=== PATIENT | female | born 1990 | race African-American/Black ===

== ENCOUNTER 2021-04-30 02:44 | Inpatient (IN) ==
[2021-04-30] MEDS ORDERED: SODIUM CHLORIDE 0.9% 1,000 ML IV STA (03:04)
[2021-04-30] MEDS ORDERED: HYDROmorphone 2 MG/1 ML VIAL IV STA (03:04)
[2021-04-30] MEDS ORDERED: ONDANSETRON 4 MG/2 ML VIAL IV STA (03:04)
[2021-04-30 04:21] LABS: Basophils % 0.2 % (0.0-0.8); Hematocrit 27.9 VOL% (35.7-47.0); Hemoglobin 8.7 GM/DL (12.0-16.0); Immature Granulocytes % 0.3 %; Immature Granulocytes Absolute 0.04 #; Lymphocytes # 0.9 10*3/uL (1.4-4.0); Lymphocytes % 6.6 % (21.3-54.2); Mean Corpuscular HGB Conc 31.2 GM/DL (32-36); Mean Corpuscular Volume 78.6 FL (87-102); Mean Platelet Volume 11.1 FL (9.6-12.0); Monocytes % 1.9 % (1.7-12.7); Platelet Count 162 T/CUMM (130-400); Red Blood Count 3.55 MC/CUMM (3.8-5.5); Red Cell Distribution Width 15.9 % (9.3-17.3); White Blood Count 13.1 T/CUMM (4-12)
[2021-04-30] MEDS ORDERED: GLUCAGON 1 MG VIAL IM PRN (04:37)
[2021-04-30] MEDS ORDERED: DEXTROSE 50% 25 GM/50 ML VIAL IV PRN (04:37)
[2021-04-30] MEDS ORDERED: DOCUSATE SODIUM 100 MG CAPSULE PO PRN (04:41)
[2021-04-30] MEDS ORDERED: SIMETHICONE CHEW 125 MG TABLET PO PRN (04:41)
[2021-04-30] MEDS ORDERED: cefTRIAXone 1,000 MG in SODIUM CHLORIDE 0.9% 100 ML IV SCH (05:00)
[2021-04-30] MEDS: SODIUM CHLORIDE 0.9% 1,000 ML IV SCH ×2 (05:02→14:06)
[2021-04-30 05:07] LABS: Alanine Aminotransferase 278 U/L (13-56); Albumin 2.5 G/DL (3.4-5.0); Alkaline Phosphatase 67 U/L (45-117); Amylase 38 U/L (25-115); Aspartate Amino Transferase 165 U/L (0-37); Blood Urea Nitrogen 9 MG/DL (7-18); Calcium 7.6 MG/DL (8.5-10.1); Carbon Dioxide 21 MMOL/L (21-32); Estimated Glom Filtration Rate 102 ML/MIN; Glucose 73 MG/DL (74-106); Osmolality,Calculated 263.4 MOS/KG (273-304); Potassium 3.5 MMOL/L (3.5-5.1); Sodium 133 MMOL/L (136-145); Total Protein 9.3 G/DL (6.4-8.2)
[2021-04-30 05:09] LABS: Bacteria Wet Mount Few /HPF; Clue Cells Few /HPF (None Seen); Epithelial Cell Wet Mount Few /HPF (Few/HPF); RBC Wet Mount 0-1 /HPF; Trichomonas Wet Mount None Seen /HPF (None Seen); Yeast Wet Mount None Seen /HPF (None Seen)
[2021-04-30] MEDS ORDERED: MAGNESIUM SULF RIDER 2 GM/50 ML PREMIX IV STA (05:15)
[2021-04-30 05:20] LABS: Bilirubin,Urine Negative (Negative); Blood, Urine Negative (Negative); Glucose,Urine (UA) Negative (Negative); Ketones,Urine Negative (Negative); Nitrite,Urine Negative (Negative); Protein,Urine Negative; RBC,Urine 3 /HPF (0-4); Squamous Epithelial Cell,Urine Occasional /HPF (0-10); Urine Appearance CLEAR (Clear); Urine Color Amber (Yellow); Urine Specific Gravity > 1.060 (1.001-1.035)
[2021-04-30 05:20] LABS: Band Neutrophils 5 % (0-10); Eosinophils 4 % (0-10); Lymphocytes 8 % (20-55); Platelet Estimate Normal; Segmented Neutrophils 83 % (50-85); Total Cells Counted 100
[2021-04-30 05:21] LABS: Hypochromasia Slight; Microcytosis 1+
[2021-04-30] MEDS ORDERED: POTASSIUM CHLORIDE RIDER 10 MEQ/100 ML PREMIX IV PRN (06:13)
[2021-04-30] MEDS ORDERED: MAGNESIUM SULF RIDER 4 GM/100 ML PREMIX IV PRN (06:13)
[2021-04-30] MEDS ORDERED: MAGNESIUM SULF RIDER 2 GM/50 ML PREMIX IV PRN (06:13)
[2021-04-30] MEDS: metroNIDAZOLE INJ 500 MG/100 ML PREMIX IV SCH ×2 (06:30→14:24)
[2021-04-30 06:42] LABS: Folate 10.25 NG/ML (5.38-24.0); Vitamin B12 568 PG/ML (211-911)
[2021-04-30 06:55] LABS: Basophils % 0.1 % (0.0-0.8); Hemoglobin 7.5 GM/DL (12.0-16.0); Immature Granulocytes % 0.6 %; Immature Granulocytes Absolute 0.07 #; Lymphocytes % 7.7 % (21.3-54.2); Mean Corpuscular HGB Conc 31.3 GM/DL (32-36); Mean Corpuscular Volume 78.7 FL (87-102); Mean Platelet Volume 12.2 FL (9.6-12.0); Monocytes % 2.4 % (1.7-12.7); Neutrophils % 89.2 % (38.7-73.9); Platelet Count 179 T/CUMM (130-400); Red Blood Count 3.05 MC/CUMM (3.8-5.5); White Blood Count 12.5 T/CUMM (4-12)
[2021-04-30 07:19] LABS: Band Neutrophils 5 % (0-10); Hypochromasia 1+; Lymphocytes 5 % (20-55); Microcytosis 1+; Platelet Estimate Adequate; Segmented Neutrophils 84 % (50-85); Total Cells Counted 100
[2021-04-30 08:10] LABS: Sedimentation Rate-Westergren 116 MM/HR (0-20)
[2021-04-30] MEDS ORDERED: INFLUENZA VIRUS VACCINE 0.5 ML SYRINGE IM ONE (08:29)
[2021-04-30] MEDS: PANTOPRAZOLE 40 MG TABLET PO SCH (09:05)
[2021-04-30 09:37] LABS: Hepatitis B Core IgM Quant 0.29 Index; Hepatitis B Surface Ag Quant < 0.10 Index; Hepatitis B Surface Ag Result Non-Reactive (NonReactive); Hepatitis C Virus Ab Quant 0.06 Index; Hepatitis C Virus Ab Result Non-Reactive (NonReactive)
[2021-04-30 10:17] LABS: Hemoglobin A1 (Alkaline) 94.7 % (96.5-98.5); Hemoglobin A2 (Alkaline) 5.3 % (1.5-3.5)
[2021-04-30] MEDS: CIPROFLOXACIN INJ 400 MG/200 ML PREMIX IV SCH ×2 (10:20→21:01)
[2021-04-30] MEDS ORDERED: MAGNESIUM SULF RIDER 4 GM/100 ML PREMIX IV ONE (11:42)
[2021-04-30] MEDS ORDERED: MAGNESIUM SULF RIDER 2 GM/50 ML PREMIX IV ONE (12:14)
[2021-04-30 12:51] LABS: % Iron Saturation 4.1 % (18-50)
[2021-04-30] MEDS: HYDROmorphone 2 MG/1 ML VIAL IV PRN (16:07)
[2021-04-30] MEDS: FERRIC GLUCONATE COMPLEX 125 MG in SODIUM CHLORIDE 0.9% 100 ML IV SCH (16:08)
[2021-04-30] MEDS ORDERED: SODIUM CHLORIDE 0.9% 1,000 ML IV PRN (18:35)
[2021-04-30] MEDS: SERTRALINE 50 MG TABLET PO SCH (22:15)
[2021-04-30] MEDS: DOXYCYCLINE HYCLATE INJ 100 MG in SODIUM CHLORIDE 0.9% 100 ML IV SCH (22:30)
[2021-05-01] MEDS: ONDANSETRON 4 MG/2 ML VIAL IV PRN ×3 (00:10→22:42)
[2021-05-01] MEDS: SODIUM CHLORIDE 0.9% 1,000 ML IV SCH ×3 (00:44→13:33)
[2021-05-01] MEDS: HYDROmorphone 2 MG/1 ML VIAL IV PRN ×4 (00:45→20:43)
[2021-05-01] MEDS: metroNIDAZOLE INJ 500 MG/100 ML PREMIX IV SCH ×4 (00:58→22:43)
[2021-05-01 06:24] LABS: Basophils % 0.2 % (0.0-0.8); Eosinophils % 0.2 % (0.00-10.9); Hematocrit 33.2 VOL% (35.7-47.0); Immature Granulocytes % 0.7 %; Immature Granulocytes Absolute 0.06 #; Mean Corpuscular HGB Conc 31.6 GM/DL (32-36); Mean Corpuscular Volume 80.4 FL (87-102); Mean Platelet Volume 12.3 FL (9.6-12.0); Monocytes % 4.1 % (1.7-12.7); Neutrophils % 82.8 % (38.7-73.9); Platelet Count 156 T/CUMM (130-400); Red Cell Distribution Width 15.9 % (9.3-17.3); White Blood Count 8.6 T/CUMM (4-12)
[2021-05-01 06:31] LABS: Hemoglobin 10.5 GM/DL (12.0-16.0); Red Blood Count 4.13 MC/CUMM (3.8-5.5)
[2021-05-01 06:45] LABS: Albumin 2.1 G/DL (3.4-5.0); Bilirubin,Direct 0.52 MG/DL (0.0-0.20); Bilirubin,Indirect 1.1 MG/DL (0.0-1.0); Bilirubin,Total 1.6 MG/DL (0.20-1.00); Bilirubin,Total 1.7 MG/DL (0.20-1.00); Calcium 7.9 MG/DL (8.5-10.1); Potassium 3.8 MMOL/L (3.5-5.1); Total Protein 7.8 G/DL (6.4-8.2); Total Protein 8.3 G/DL (6.4-8.2)
[2021-05-01 06:48] LABS: Band Neutrophils 2 % (0-10); Hypochromasia 1+; Lymphocytes 8 % (20-55); Microcytosis 1+; Platelet Estimate Adequate; Segmented Neutrophils 88 % (50-85); Total Cells Counted 100
[2021-05-01 09:27] LABS: Hematocrit 32.8 VOL% (35.7-47.0); Hemoglobin 10.6 GM/DL (12.0-16.0)
[2021-05-01] MEDS: DOXYCYCLINE HYCLATE INJ 100 MG in SODIUM CHLORIDE 0.9% 100 ML IV SCH ×2 (09:41→20:56)
[2021-05-01] MEDS ORDERED: MAGNESIUM SULF RIDER 2 GM/50 ML PREMIX IV ONE (09:42)
[2021-05-01] MEDS: PANTOPRAZOLE 40 MG TABLET PO SCH (09:42)
[2021-05-01] MEDS: CIPROFLOXACIN INJ 400 MG/200 ML PREMIX IV SCH (09:42)
[2021-05-01] MEDS: POLYETHYLENE GLYCOL POWDER 17 GM PACK PO SCH ×2 (09:42→21:12)
[2021-05-01] MEDS: FERRIC GLUCONATE COMPLEX 125 MG in SODIUM CHLORIDE 0.9% 100 ML IV SCH (11:00)
[2021-05-01] MEDS: SERTRALINE 50 MG TABLET PO SCH (20:46)
[2021-05-02] MEDS: CIPROFLOXACIN INJ 400 MG/200 ML PREMIX IV SCH ×3 (01:12→22:09)
[2021-05-02] MEDS: HYDROmorphone 2 MG/1 ML VIAL IV PRN (04:33)
[2021-05-02 04:35] LABS: Basophils % 0.5 % (0.0-0.8); Hematocrit 32.6 VOL% (35.7-47.0); Hemoglobin 10.5 GM/DL (12.0-16.0); Immature Granulocytes % 0.6 %; Immature Granulocytes Absolute 0.05 #; Lymphocytes # 0.6 10*3/uL (1.4-4.0); Lymphocytes % 7.3 % (21.3-54.2); Mean Corpuscular HGB Conc 32.2 GM/DL (32-36); Mean Corpuscular Volume 78.7 FL (87-102); Mean Platelet Volume 10.4 FL (9.6-12.0); Monocytes % 5.6 % (1.7-12.7); Platelet Count 175 T/CUMM (130-400); Red Blood Count 4.14 MC/CUMM (3.8-5.5); Red Cell Distribution Width 15.4 % (9.3-17.3)
[2021-05-02 04:57] LABS: Calcium 7.5 MG/DL (8.5-10.1); Osmolality,Calculated 265.2 MOS/KG (273-304); Potassium 3.6 MMOL/L (3.5-5.1)
[2021-05-02 05:00] LABS: Albumin 1.9 G/DL (3.4-5.0); Bilirubin,Direct 0.46 MG/DL (0.0-0.20); Bilirubin,Indirect 0.7 MG/DL (0.0-1.0); Bilirubin,Total 1.2 MG/DL (0.20-1.00); Total Protein 8.1 G/DL (6.4-8.2)
[2021-05-02 05:14] LABS: Band Neutrophils 3 % (0-10); Lymphocytes 10 % (20-55); Segmented Neutrophils 84 % (50-85); Total Cells Counted 100
[2021-05-02 05:15] LABS: Microcytosis 1+; Platelet Estimate Normal
[2021-05-02] MEDS: metroNIDAZOLE INJ 500 MG/100 ML PREMIX IV SCH ×2 (05:39→14:22)
[2021-05-02] MEDS: SODIUM CHLORIDE 0.9% 1,000 ML IV SCH ×4 (05:41→13:09)
[2021-05-02] MEDS: FERRIC GLUCONATE COMPLEX 125 MG in SODIUM CHLORIDE 0.9% 100 ML IV SCH (09:48)
[2021-05-02] MEDS: PANTOPRAZOLE 40 MG TABLET PO SCH (09:48)
[2021-05-02] MEDS: POLYETHYLENE GLYCOL POWDER 17 GM PACK PO SCH ×2 (09:48→22:09)
[2021-05-02] MEDS: DOXYCYCLINE HYCLATE INJ 100 MG in SODIUM CHLORIDE 0.9% 100 ML IV SCH ×2 (09:49→20:01)
[2021-05-02] MEDS ORDERED: MAGNESIUM SULF RIDER 2 GM/50 ML PREMIX IV ONE (11:26)
[2021-05-02] MEDS ORDERED: MORPHINE 2 MG/1 ML SYRINGE IV PRN (12:34)
[2021-05-02] MEDS: ACETAMINOPHEN 325 MG TABLET PO PRN ×2 (15:50→22:10)
[2021-05-02] MEDS ORDERED: hydrALAZINE 20 MG/1 ML VIAL IV PRN (15:52)
[2021-05-02] MEDS: amLODIPine 5 MG TABLET PO SCH (16:35)
[2021-05-02] MEDS: FUROSEMIDE 40 MG/4 ML VIAL IV SCH (22:10)
[2021-05-02] MEDS: SERTRALINE 50 MG TABLET PO SCH (22:10)
[2021-05-03] MEDS: metroNIDAZOLE INJ 500 MG/100 ML PREMIX IV SCH ×4 (01:34→23:23)
[2021-05-03 06:40] LABS: Basophils % 0.2 % (0.0-0.8); Eosinophils % 0.1 % (0.00-10.9); Hemoglobin 10.4 GM/DL (12.0-16.0); Immature Granulocytes % 0.5 %; Immature Granulocytes Absolute 0.05 #; Lymphocytes # 0.9 10*3/uL (1.4-4.0); Mean Corpuscular HGB Conc 32.5 GM/DL (32-36); Mean Corpuscular Volume 77.7 FL (87-102); Mean Platelet Volume 10.6 FL (9.6-12.0); Monocytes % 10.3 % (1.7-12.7); Neutrophils % 78.9 % (38.7-73.9); Platelet Count 196 T/CUMM (130-400); Red Blood Count 4.12 MC/CUMM (3.8-5.5); Red Cell Distribution Width 15.5 % (9.3-17.3); White Blood Count 9.2 T/CUMM (4-12)
[2021-05-03 07:08] LABS: Calcium 7.7 MG/DL (8.5-10.1); Osmolality,Calculated 266.1 MOS/KG (273-304); Potassium 3.1 MMOL/L (3.5-5.1)
[2021-05-03] MEDS ORDERED: MAGNESIUM SULF RIDER 4 GM/100 ML PREMIX IV ONE (07:42)
[2021-05-03] MEDS: POLYETHYLENE GLYCOL POWDER 17 GM PACK PO SCH ×2 (08:33→22:26)
[2021-05-03] MEDS: POTASSIUM CHLORIDE 20 MEQ PACK PO SCH ×2 (08:33→12:56)
[2021-05-03] MEDS: PANTOPRAZOLE 40 MG TABLET PO SCH (08:34)
[2021-05-03] MEDS: ACETAMINOPHEN 325 MG TABLET PO PRN ×3 (08:34→22:13)
[2021-05-03] MEDS: amLODIPine 5 MG TABLET PO SCH (08:35)
[2021-05-03] MEDS: FUROSEMIDE 40 MG/4 ML VIAL IV SCH ×2 (08:53→17:50)
[2021-05-03] MEDS: FERRIC GLUCONATE COMPLEX 125 MG in SODIUM CHLORIDE 0.9% 100 ML IV SCH (08:54)
[2021-05-03] MEDS: ONDANSETRON 4 MG/2 ML VIAL IV PRN (09:58)
[2021-05-03] MEDS: DOXYCYCLINE HYCLATE INJ 100 MG in SODIUM CHLORIDE 0.9% 100 ML IV SCH ×2 (12:23→23:18)
[2021-05-03] MEDS: CIPROFLOXACIN INJ 400 MG/200 ML PREMIX IV SCH ×2 (14:20→22:17)
[2021-05-03] MEDS: POTASSIUM CHLORIDE RIDER 10 MEQ/100 ML PREMIX IV SCH ×4 (17:50→22:26)
[2021-05-03] MEDS: METOCLOPRAMIDE 10 MG/2 ML VIAL IV SCH ×2 (17:50→23:16)
[2021-05-03] MEDS: SERTRALINE 50 MG TABLET PO SCH (22:04)
[2021-05-04 05:34] LABS: Basophils % 0.3 % (0.0-0.8); Eosinophils % 0.3 % (0.00-10.9); Hematocrit 31.7 VOL% (35.7-47.0); Hemoglobin 10.6 GM/DL (12.0-16.0); Immature Granulocytes % 1.5 %; Immature Granulocytes Absolute 0.15 #; Lymphocytes # 1.1 10*3/uL (1.4-4.0); Lymphocytes % 11.5 % (21.3-54.2); Mean Corpuscular HGB Conc 33.4 GM/DL (32-36); Mean Corpuscular Volume 77.3 FL (87-102); Mean Platelet Volume 9.9 FL (9.6-12.0); Monocytes % 12.3 % (1.7-12.7); Neutrophils % 74.1 % (38.7-73.9); Platelet Count 214 T/CUMM (130-400); Red Cell Distribution Width 15.7 % (9.3-17.3); White Blood Count 9.8 T/CUMM (4-12)
[2021-05-04] MEDS: metroNIDAZOLE INJ 500 MG/100 ML PREMIX IV SCH ×3 (05:53→23:56)
[2021-05-04] MEDS: METOCLOPRAMIDE 10 MG/2 ML VIAL IV SCH ×4 (05:55→23:56)
[2021-05-04 06:01] LABS: Bilirubin,Direct 0.3 MG/DL (0.0-0.20); Bilirubin,Indirect 0.8 MG/DL (0.0-1.0); Bilirubin,Total 1.1 MG/DL (0.20-1.00); Total Protein 8.5 G/DL (6.4-8.2)
[2021-05-04 06:02] LABS: Albumin 2.1 G/DL (3.4-5.0); Bilirubin,Total 1.2 MG/DL (0.20-1.00); Calcium 7.5 MG/DL (8.5-10.1); Osmolality,Calculated 266.1 MOS/KG (273-304); Potassium 2.9 MMOL/L (3.5-5.1); Total Protein 8.1 G/DL (6.4-8.2)
[2021-05-04] MEDS: CIPROFLOXACIN INJ 400 MG/200 ML PREMIX IV SCH ×2 (09:02→21:26)
[2021-05-04] MEDS: amLODIPine 5 MG TABLET PO SCH (09:03)
[2021-05-04] MEDS: POLYETHYLENE GLYCOL POWDER 17 GM PACK PO SCH ×2 (09:03→21:45)
[2021-05-04] MEDS: PANTOPRAZOLE 40 MG TABLET PO SCH (09:03)
[2021-05-04] MEDS: DOXYCYCLINE HYCLATE INJ 100 MG in SODIUM CHLORIDE 0.9% 100 ML IV SCH ×2 (09:09→22:27)
[2021-05-04] MEDS: ACETAMINOPHEN 325 MG TABLET PO PRN ×3 (09:25→22:27)
[2021-05-04] MEDS: FUROSEMIDE 40 MG/4 ML VIAL IV SCH ×2 (09:54→16:13)
[2021-05-04] MEDS: FERRIC GLUCONATE COMPLEX 125 MG in SODIUM CHLORIDE 0.9% 100 ML IV SCH (10:26)
[2021-05-04] MEDS: POTASSIUM CHLORIDE RIDER 10 MEQ/100 ML PREMIX IV SCH ×6 (12:06→18:10)
[2021-05-04] MEDS: POTASSIUM CHLORIDE 20 MEQ TABLET PO SCH (21:12)
[2021-05-04] MEDS: SERTRALINE 50 MG TABLET PO SCH (22:17)
[2021-05-05] MEDS: METOCLOPRAMIDE 10 MG/2 ML VIAL IV SCH ×3 (05:33→17:23)
[2021-05-05] MEDS: ACETAMINOPHEN 325 MG TABLET PO PRN ×3 (05:33→21:07)
[2021-05-05] MEDS: metroNIDAZOLE INJ 500 MG/100 ML PREMIX IV SCH ×2 (05:35→14:17)
[2021-05-05 06:03] LABS: Basophils % 0.1 % (0.0-0.8); Eosinophils # 0.1 10*3/uL (0.0-0.87); Eosinophils % 0.8 % (0.00-10.9); Hematocrit 32.4 VOL% (35.7-47.0); Hemoglobin 10.5 GM/DL (12.0-16.0); Immature Granulocytes % 1.1 %; Immature Granulocytes Absolute 0.09 #; Lymphocytes # 1.7 10*3/uL (1.4-4.0); Lymphocytes % 19.9 % (21.3-54.2); Mean Corpuscular HGB Conc 32.4 GM/DL (32-36); Mean Corpuscular Volume 77.3 FL (87-102); Mean Platelet Volume 9.2 FL (9.6-12.0); Monocytes % 10.2 % (1.7-12.7); Neutrophils % 67.9 % (38.7-73.9); Platelet Count 232 T/CUMM (130-400); Red Blood Count 4.19 MC/CUMM (3.8-5.5); Red Cell Distribution Width 16.4 % (9.3-17.3); White Blood Count 8.3 T/CUMM (4-12)
[2021-05-05 06:22] LABS: Calcium 7.9 MG/DL (8.5-10.1); Osmolality,Calculated 269.8 MOS/KG (273-304); Potassium 3.7 MMOL/L (3.5-5.1)
[2021-05-05 06:25] LABS: Bilirubin,Direct 0.26 MG/DL (0.0-0.20); Bilirubin,Indirect 0.5 MG/DL (0.0-1.0); Bilirubin,Total 0.8 MG/DL (0.20-1.00); Total Protein 8.3 G/DL (6.4-8.2)
[2021-05-05 07:20] LABS: Anisocytosis 1+; Platelet Estimate Normal; Target Cells Few
[2021-05-05] MEDS: CIPROFLOXACIN INJ 400 MG/200 ML PREMIX IV SCH ×2 (09:07→23:37)
[2021-05-05] MEDS: POTASSIUM CHLORIDE 20 MEQ TABLET PO SCH ×2 (09:08→21:07)
[2021-05-05] MEDS: POLYETHYLENE GLYCOL POWDER 17 GM PACK PO SCH ×3 (09:08→21:09)
[2021-05-05] MEDS: PANTOPRAZOLE 40 MG TABLET PO SCH (09:09)
[2021-05-05] MEDS: amLODIPine 5 MG TABLET PO SCH (09:09)
[2021-05-05] MEDS: FUROSEMIDE 40 MG/4 ML VIAL IV SCH ×2 (09:19→15:04)
[2021-05-05] MEDS: DOXYCYCLINE HYCLATE INJ 100 MG in SODIUM CHLORIDE 0.9% 100 ML IV SCH ×2 (09:53→21:09)
[2021-05-05] MEDS: SERTRALINE 50 MG TABLET PO SCH (21:07)
[2021-05-05] MEDS: LORazepam 0.5 MG TABLET PO PRN (21:25)
[2021-05-06] MEDS: metroNIDAZOLE INJ 500 MG/100 ML PREMIX IV SCH ×4 (00:40→14:46)
[2021-05-06] MEDS: METOCLOPRAMIDE 10 MG/2 ML VIAL IV SCH ×4 (00:45→18:28)
[2021-05-06 05:01] LABS: Basophils % 0.2 % (0.0-0.8); Eosinophils # 0.1 10*3/uL (0.0-0.87); Eosinophils % 1.6 % (0.00-10.9); Hematocrit 34.4 VOL% (35.7-47.0); Hemoglobin 11.1 GM/DL (12.0-16.0); Immature Granulocytes % 0.9 %; Immature Granulocytes Absolute 0.08 #; Lymphocytes # 2.1 10*3/uL (1.4-4.0); Lymphocytes % 23.3 % (21.3-54.2); Mean Corpuscular HGB Conc 32.3 GM/DL (32-36); Mean Corpuscular Volume 78.7 FL (87-102); Mean Platelet Volume 9.5 FL (9.6-12.0); Monocytes % 8.7 % (1.7-12.7); Neutrophils % 65.3 % (38.7-73.9); Platelet Count 272 T/CUMM (130-400); Red Blood Count 4.37 MC/CUMM (3.8-5.5); Red Cell Distribution Width 16.8 % (9.3-17.3)
[2021-05-06 06:09] LABS: Albumin 2.1 G/DL (3.4-5.0); Bilirubin,Total 0.8 MG/DL (0.20-1.00); Potassium 3.6 MMOL/L (3.5-5.1); Total Protein 8.9 G/DL (6.4-8.2)
[2021-05-06 06:17] LABS: Osmolality,Calculated 265.1 MOS/KG (273-304)
[2021-05-06] MEDS: POTASSIUM CHLORIDE 20 MEQ TABLET PO SCH ×2 (09:12→22:07)
[2021-05-06] MEDS: DOXYCYCLINE HYCLATE INJ 100 MG in SODIUM CHLORIDE 0.9% 100 ML IV SCH ×2 (09:13→23:34)
[2021-05-06] MEDS: POLYETHYLENE GLYCOL POWDER 17 GM PACK PO SCH ×3 (09:13→22:07)
[2021-05-06] MEDS: amLODIPine 5 MG TABLET PO SCH (09:13)
[2021-05-06] MEDS: FUROSEMIDE 40 MG/4 ML VIAL IV SCH ×2 (09:14→17:08)
[2021-05-06] MEDS: PANTOPRAZOLE 40 MG TABLET PO SCH (09:35)
[2021-05-06] MEDS: CIPROFLOXACIN INJ 400 MG/200 ML PREMIX IV SCH ×2 (11:30→22:11)
[2021-05-06 15:05] LABS: INR 1.3; PT Patient Result 13.9 SECS (10.5-12.0)
[2021-05-06 17:52] LABS: Bilirubin,Urine Negative (Negative); Blood, Urine Negative (Negative); Glucose,Urine (UA) Negative (Negative); Ketones,Urine Negative (Negative); Mucus,Urine Occasional /LPF (Occasional); Nitrite,Urine Negative (Negative); Protein,Urine Negative; RBC,Urine 3 /HPF (0-4); Squamous Epithelial Cell,Urine Occasional /HPF (0-10); Urine Appearance CLEAR (Clear); Urine Color Yellow (Yellow); Urine Specific Gravity 1.017 (1.001-1.035); Urine Urobilinogen < 2.0 EU/DL (0.2-1.0)
[2021-05-06] MEDS: SERTRALINE 50 MG TABLET PO SCH (22:07)
[2021-05-06] MEDS: ACETAMINOPHEN 325 MG TABLET PO PRN (22:07)
[2021-05-06] MEDS: LORazepam 0.5 MG TABLET PO PRN (22:07)
[2021-05-07] MEDS: metroNIDAZOLE INJ 500 MG/100 ML PREMIX IV SCH ×3 (00:35→19:55)
[2021-05-07] MEDS: METOCLOPRAMIDE 10 MG/2 ML VIAL IV SCH ×4 (00:38→17:26)
[2021-05-07 06:37] LABS: Basophils % 0.3 % (0.0-0.8); Eosinophils # 0.2 10*3/uL (0.0-0.87); Eosinophils % 1.9 % (0.00-10.9); Hematocrit 39.4 VOL% (35.7-47.0); Hemoglobin 12.6 GM/DL (12.0-16.0); Immature Granulocytes Absolute 0.11 #; Lymphocytes # 2.4 10*3/uL (1.4-4.0); Lymphocytes % 22.3 % (21.3-54.2); Mean Corpuscular Volume 78.6 FL (87-102); Mean Platelet Volume 9.5 FL (9.6-12.0); Neutrophils % 67.5 % (38.7-73.9); Platelet Count 333 T/CUMM (130-400); Red Blood Count 5.01 MC/CUMM (3.8-5.5); Red Cell Distribution Width 17.2 % (9.3-17.3)
[2021-05-07 07:04] LABS: Calcium 8.8 MG/DL (8.5-10.1); Osmolality,Calculated 261.5 MOS/KG (273-304); Potassium 4.1 MMOL/L (3.5-5.1)
[2021-05-07] MEDS: PANTOPRAZOLE 40 MG TABLET PO SCH (09:49)
[2021-05-07] MEDS: amLODIPine 5 MG TABLET PO SCH (09:49)
[2021-05-07] MEDS: POTASSIUM CHLORIDE 20 MEQ TABLET PO SCH ×2 (09:49→20:57)
[2021-05-07] MEDS: DOXYCYCLINE HYCLATE INJ 100 MG in SODIUM CHLORIDE 0.9% 100 ML IV SCH ×2 (14:26→21:33)
[2021-05-07] MEDS: FUROSEMIDE 40 MG/4 ML VIAL IV SCH ×2 (14:26→16:45)
[2021-05-07] MEDS: CIPROFLOXACIN INJ 400 MG/200 ML PREMIX IV SCH (14:26)
[2021-05-07] MEDS ORDERED: MEROPENEM 2,000 MG in SODIUM CHLORIDE 0.9% 100 ML IV SCH (15:00)
[2021-05-07] MEDS: MEROPENEM 500 MG in SODIUM CHLORIDE 0.9% 100 ML IV SCH ×2 (17:25→20:53)
[2021-05-07] MEDS: SERTRALINE 50 MG TABLET PO SCH (20:57)
[2021-05-07] MEDS: LORazepam 0.5 MG TABLET PO PRN (21:08)
[2021-05-08] MEDS: METOCLOPRAMIDE 10 MG/2 ML VIAL IV SCH ×2 (00:34→05:57)
[2021-05-08] MEDS: MEROPENEM 500 MG in SODIUM CHLORIDE 0.9% 100 ML IV SCH ×2 (03:33→10:17)
[2021-05-08 06:14] LABS: Basophils % 0.3 % (0.0-0.8); Eosinophils # 0.3 10*3/uL (0.0-0.87); Eosinophils % 2.7 % (0.00-10.9); Hematocrit 39.6 VOL% (35.7-47.0); Hemoglobin 12.9 GM/DL (12.0-16.0); Immature Granulocytes % 0.5 %; Immature Granulocytes Absolute 0.06 #; Lymphocytes # 2.2 10*3/uL (1.4-4.0); Lymphocytes % 18.2 % (21.3-54.2); Mean Corpuscular HGB Conc 32.6 GM/DL (32-36); Mean Corpuscular Volume 78.7 FL (87-102); Mean Platelet Volume 9.6 FL (9.6-12.0); Monocytes % 6.3 % (1.7-12.7); Platelet Count 350 T/CUMM (130-400); Red Blood Count 5.03 MC/CUMM (3.8-5.5); Red Cell Distribution Width 17.1 % (9.3-17.3); White Blood Count 11.8 T/CUMM (4-12)
[2021-05-08 07:59] LABS: Calcium 8.6 MG/DL (8.5-10.1); Osmolality,Calculated 260.7 MOS/KG (273-304); Potassium 4.2 MMOL/L (3.5-5.1)
[2021-05-08 08:06] LABS: Albumin 2.5 G/DL (3.4-5.0); Bilirubin,Direct 0.25 MG/DL (0.0-0.20); Bilirubin,Indirect 0.4 MG/DL (0.0-1.0); Bilirubin,Total 0.6 MG/DL (0.20-1.00); Total Protein 10.4 G/DL (6.4-8.2)
[2021-05-08] MEDS: FUROSEMIDE 40 MG/4 ML VIAL IV SCH (09:27)
[2021-05-08] MEDS: POTASSIUM CHLORIDE 20 MEQ TABLET PO SCH (10:06)
[2021-05-08] MEDS: PANTOPRAZOLE 40 MG TABLET PO SCH (10:06)
[2021-05-08] MEDS: amLODIPine 5 MG TABLET PO SCH (10:06)
[2021-05-08 12:05] VITALS: BP 113/82
== END 2021-05-08 12:10 | disposition home or self-care (01) | DRG 531 ==
LOC: N.EDINP 02:44 → N.ED 02:44 → N.TELES 06:58
PROVIDERS: ADMIT Internal Medicine; ATTEND Internal Medicine